=== PATIENT | female | born 1945 | race Caucasian/White ===

== ENCOUNTER 2019-07-13 09:43 | Outpatient (CLI) | payer MEDICARE, OTHER ==
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
== END 2019-07-13 09:44 | disposition home or self-care (01) ==
LOC: SCSRAD 09:43
PROVIDERS: ATTEND Family Medicine
DX: R07.81 Pleurodynia (principal); S22.41XA Multiple fractures of ribs, right side, initial encounter for closed fracture

== ENCOUNTER 2019-09-28 09:30 | Outpatient (CLI) | payer MEDICARE, OTHER ==
--- NOTE | 2019-09-28 11:49 | RAD ---
RIGHT RIBS GREATER THAN EQUAL TO 2 VIEW STANDARD: HISTORY: Right upper quadrant closed fractures of multiple ribs. COMPARISON: Upright rib radiograph from 07/13/2019. FINDINGS: There are healing rib fractures of the anterior 7th, 8th, 9th, and possibly even the 10th ribs. No u nderlying pneumothorax. There is callus formation. No significant effusion. IMPRESSION: Healing right 7th-10th rib fractures with some mild displacement and callus formation. POS: HOME
--- NOTE | 2019-09-28 11:56 | ULT ---
RIGHT UPPER QUADRANT ULTRASOUND: Date: 09/28/2019 HISTORY: Right upper quadrant abdominal pain. COMPARISON: 05/03/2014. FINDINGS: The pancreas is obscured by bowel gas. The liver demonstrates increased echogenicity suggesting diffuse fatty infiltrate. This does limit ev aluation of the hepatic parenchyma, but no obvious focal hepatic lesion is appreciated. There are mobile echogenic foci seen within the gallbladder lumen with posterior shadowing compatible with gallbladder calculi. There is gallbladder wall thickening measuring 0.4 cm. No pericholecystic fluid is identified. Grape Picker was unable to elicit a sonographic Powell's sign. Common duct is normal in caliber, measuring 0.4 cm. Visualized portions of the IVC and right kidney demonstrate a normal sonographic appearance. The righ t kidney measures 10.8 cm. IMPRESSION: Cholelithiasis with gallbladder wall thickening. No pericholecystic fluid or sonographic Powell's sig n elicited. However, gallbladder wall thickening in a patient with cholelithiasis can be seen with ch olecystitis. Hepatobiliary study may be helpful for further evaluation depending on clinical concern. 2. Common duct is normal in caliber. 3. Fatty infiltration of the liver. POS: LUANN
== END 2019-09-28 09:31 | disposition home or self-care (01) ==
LOC: SCSULT 09:30
PROVIDERS: ATTEND Family Medicine
DX: R10.11 Right upper quadrant pain (principal); S22.41XD Multiple fractures of ribs, right side, subsequent encounter for fracture with routine healing; K80.20 Calculus of gallbladder without cholecystitis without obstruction; K82.8 Other specified diseases of gallbladder; K76.0 Fatty (change of) liver, not elsewhere classified
CPT/HCPCS: 76705

== ENCOUNTER 2019-10-11 12:07 | Outpatient (CLI) | payer MEDICARE, OTHER ==
[2019-10-11 12:59] LABS: #Basophils 0.1 thou/uL (0.0-0.2); #Eosinphils 0.3 thou/uL (0.0-0.7); #Lymphocytes 2.4 thou/uL (1.20-3.40); #Monocytes 0.5 thou/uL (0.11-0.59); #Neutrophils 3.2 thou/uL (1.40-6.50); %Basophils 0.8 % (0.0-1.0); %Lymphocytes 36.6 % (21.0-51.0); %Monocytes 7.7 % (0.0-10.0); %Neutrophils 49.9 % (42.0-75.0); Hemoglobin 13.3 g/dL (12.0-16.0); Mean Corpuscular HGB CONC 33.9 g/dL (32.0-36.0); Mean Corpuscular Hemoglobin 33.8 pg (27.0-31.0); Mean Corpuscular Volume 99.7 fL (78.0-98.0); Mean Platelet Volume 10.4 fL (7.4-10.4); Platelet Count 195 thou/uL (130-400); RBC Distribution Width 11.6 % (11.5-14.5); Red Blood Cell (RBC) Count 3.92 mill/uL (4.20-5.40); White Blood Cell (WBC) Count 6.5 thou/uL (4.8-10.8)
[2019-10-11 13:12] LABS: ALT (SGPT) 363 U/L (8-55); AST (SGOT) 196 U/L (5-34); Albumin 4.2 g/dL (3.4-4.8); Alkaline Phosphatase 270 U/L (40-110); Anion Gap 11 mmol/L (10-20); BUN (Urea Nitrogen) 17 mg/dL (9.8-20.1); Bilirubin, Direct 0.2 mg/dL (0.1-0.3); Bilirubin, Total 0.5 mg/dL (0.2-1.2); Calc. Creatinine Clearance 0 mL/min (70-130); Calcium 10.1 mg/dL (7.8-10.44); Carbon Dioxide 30 mmol/L (23-31); Chloride 102 mmol/L (98-107); Estimated GFR-MDRD 71; Globulin 3.5 g/dL (2.4-3.5); Glucose 93 mg/dL (83-110); Potassium 4.6 mmol/L (3.5-5.1); Protein, Total 7.7 g/dL (6.0-8.3); Sodium 138 mmol/L (136-145)
== END 2019-10-11 12:08 | disposition home or self-care (01) ==
LOC: LABBT 12:07
PROVIDERS: ATTEND Surgery
DX: Z01.818 Encounter for other preprocedural examination (principal); K81.0 Acute cholecystitis
CPT/HCPCS: 80053; 80076; 85025; 93005; 93010

== ENCOUNTER → 2019-10-12 | Day surgery (SDC) | payer MEDICARE, OTHER ==
[2019-10-11 12:14] VITALS: BMI 34.3
[~2019-10-12] MED LIST: Bupivacaine 0.25% HCL 30 ML VIAL ONE; Dexamethasone 20 MG/5 ML VIAL ONE; Fentanyl 100 MCG/2 ML VIAL ONE; Glycopyrrolate 0.2 MG/ML 5 ML SYRINGE ONE; HYDROcodone/Acetaminophen 5/325 mg Tablet ONE; Iothalamate Meglumine 60% 50 ML VIAL FS ONE; Ketorolac Tromethamine 30 MG/ML VIAL ONE; Lidocaine 1% PF 5 ML VIAL ONE; Lidocaine 1% w/Epinephrine 1:100K 20 ML VIAL ONE; Ondansetron PF 4 MG/2 ML Vial ONE; PROPOFOL 200 MG/20 ML VIAL ONE; Rocuronium Bromide 10 MG/ML (10ML VIAL) ONE; Succinylcholine Chloride 20 MG/ML 10 ml SYRINGE FS ONE
--- NOTE | 2019-10-12 10:54 | RAD ---
EXAM: XR Cholangiogram in Surgery PROVIDED CLINICAL HISTORY: Cholelithiasis and gallbladder wall thickening in a patient with right upper quadrant abdominal pain. COMPARISON: None FINDINGS\IMPRESSION: Single intraoperative fluoroscopic images from an intraoperative cholangiogram is submitted for inter pretation. Provided image demonstrates surgical instruments overlying the right upper quadrant. The cystic duct is cannulated. There is opacification of the common duct and intrahepatic bile ducts. The common duct does appear mildly ectatic. There is a short segment of faint diminished contrast above the level of the cystic duct which is likely related to incomplete distention and opacification with contrast. No significant intrahepatic biliary duct dilatation is present. No definite filling defect is seen to correspond to a calculus on provided image. There is evidence of free spill of cont rast into the duodenum. Correlation with intraoperative findings is recommended. Fluoroscopy: Time-4 seconds Dose 0.53 mGy
--- NOTE | 2019-10-12 13:51 | OP ---
DATE OF PROCEDURE: 10/12/2019 PREOPERATIVE DIAGNOSIS: Acute on chronic cholecystitis. PROCEDURE PERFORMED: Laparoscopic cholecystectomy with intraoperative cholangiogram. INDICATIONS: A 73-year-old female with progressive right upper quadrant pain associated with nausea and vomiting. She had gone to the emergency room and was found to have gallstones and a thickened gallbladder wall. She had elevated liver functions. FINDINGS: Distended, inflamed gallbladder with thickened wall, several stones, negative IOC. DESCRIPTION OF PROCEDURE: After informed consent was obtained, patient was taken to the operating room, given general endotracheal anesthesia, placed in supine position. Abdomen was prepped and draped in usual fashion. Local anesthesia was infiltrated subcutaneously and deep. A subumbilical incision was performed. Subcu divided sharply. The fascia was grasped and 2 stay sutures of 0 Vicryl placed on either side of midline. Midline incised. Digital palpation revealed no local adhesions. A blunt 12 mm trocar inserted. Pneumoperitoneum was created to a pressure of 15 mmHg. A 0-degree laparoscope inserted under direct vision. Three 5 mm ports were placed subcostal. The gallbladder was distended and was able to be grasped and advanced superiorly. The peritoneum was dissected distally to expose the cystic duct and cystic artery in critical view. A clip was placed at the base of the gallbladder on the cystic duct. An incision made in the cystic duct and an Arrow cholangiocatheter inserted. Intraoperative cholangiogram was performed utilizing fluoroscopy showing free flow into the duodenum, no filling defects, normal intrahepatic ducts. The catheter removed. The duct was triply ligated and divided. The artery triply ligated and divided. The gallbladder removed from its fossa utilizing electrocautery. It was placed in an Endosac, removed from the abdomen through the umbilical port in the Endosac. Hemostasis was assured. Trocars and retractors removed. The fascia closed with interrupted 2-0 Vicryl suture. The skin closed with interrupted 4-0 Rapide. Dermabond applied. The patient tolerated the procedure well, transferred to Recovery in good condition. Sponge and needle count verified, correct x2. Job ID: [id number]
== END | disposition home or self-care (01) ==
LOC: SDC 07:16
PROVIDERS: ATTEND Surgery
PROC: 0FT44ZZ Resection of Gallbladder, Percutaneous Endoscopic Approach (ICD-10-PCS; principal; 2019-10-12)
PROC: BF13YZZ Fluoroscopy of Gallbladder and Bile Ducts using Other Contrast (ICD-10-PCS; 2019-10-12)
DX: K80.12 Calculus of gallbladder with acute and chronic cholecystitis without obstruction (principal); K21.9 Gastro-esophageal reflux disease without esophagitis; M41.9 Scoliosis, unspecified; H91.90 Unspecified hearing loss, unspecified ear; E78.00 Pure hypercholesterolemia, unspecified; M19.90 Unspecified osteoarthritis, unspecified site; F32.9 Major depressive disorder, single episode, unspecified; Z88.2 Allergy status to sulfonamides; Z88.5 Allergy status to narcotic agent; Z79.899 Other long term (current) drug therapy; Z98.890 Other specified postprocedural states
CPT/HCPCS: 47532; 88304; J0694; J1100; J1885; J2001; J2405; J2704; J3010; S0020

== ENCOUNTER 2019-10-16 16:37 | Emergency (ER) | payer MEDICARE, OTHER ==
[2019-10-16] MEDS ORDERED: Ondansetron PF 4 MG/2 ML Vial ONE (17:15)
[2019-10-16 17:37] LABS: #Lymphocytes 1.5 thou/uL (1.20-3.40); #Monocytes 1.2 thou/uL (0.11-0.59); #Neutrophils 11.9 thou/uL (1.40-6.50); %Basophils 0.1 % (0.0-1.0); %Eosinophils 0.2 % (0.0-10.0); %Lymphocytes 10.3 % (21.0-51.0); %Monocytes 8.1 % (0.0-10.0); %Neutrophils 81.3 % (42.0-75.0); ALT (SGPT) 163 U/L (8-55); AST (SGOT) 44 U/L (5-34); Albumin 4.2 g/dL (3.4-4.8); Alkaline Phosphatase 229 U/L (40-110); Anion Gap 18 mmol/L (10-20); BUN (Urea Nitrogen) 20 mg/dL (9.8-20.1); Bilirubin, Total 0.6 mg/dL (0.2-1.2); Calc. Creatinine Clearance 0 mL/min (70-130); Calcium 10.2 mg/dL (7.8-10.44); Carbon Dioxide 25 mmol/L (23-31); Chloride 97 mmol/L (98-107); Estimated GFR-MDRD 67; Globulin 3.9 g/dL (2.4-3.5); Glucose 142 mg/dL (83-110); Hemoglobin 14.9 g/dL (12.0-16.0); Mean Corpuscular HGB CONC 34.1 g/dL (32.0-36.0); Mean Corpuscular Hemoglobin 33.9 pg (27.0-31.0); Mean Corpuscular Volume 99.4 fL (78.0-98.0); Mean Platelet Volume 10.6 fL (7.4-10.4); Platelet Count 240 thou/uL (130-400); Potassium 3.4 mmol/L (3.5-5.1); Protein, Total 8.1 g/dL (6.0-8.3); RBC Distribution Width 11.5 % (11.5-14.5); Red Blood Cell (RBC) Count 4.41 mill/uL (4.20-5.40); Sodium 137 mmol/L (136-145); White Blood Cell (WBC) Count 14.7 thou/uL (4.8-10.8)
--- NOTE | 2019-10-16 18:44 | RAD ---
SUPINE ABDOMEN: History: Abdominal pain. Post cholecystectomy four days ago. FINDINGS: There is stool throughout the colon which may indicate constipation. Nonspecific gas filled distended loops of small bowel seen. IMPRESSION: Nonspecific bowel gas. No evidence of obstruction. Possible ileus and/or constipation. POS: AGW
[2019-10-16] MEDS ORDERED: Ketorolac Tromethamine 30 MG/ML VIAL ONE ×2 (19:08→19:11)
== END 2019-10-16 19:54 | disposition home or self-care (01) ==
LOC: ERS 16:37
DX: K91.89 Other postprocedural complications and disorders of digestive system (principal); K56.7 Ileus, unspecified; K59.00 Constipation, unspecified; I10 Essential (primary) hypertension; F32.9 Major depressive disorder, single episode, unspecified; Z79.899 Other long term (current) drug therapy
CPT/HCPCS: 36415; 74018; 80053; 85025; 96361; 96374; 96375; J1885; J2405

== ENCOUNTER 2019-10-19 13:29 | Emergency (ER) | payer MEDICARE, OTHER ==
[~2019-10-19 13:29] MED LIST changes: -Bupivacaine 0.25% HCL 30 ML VIAL ONE; -Dexamethasone 20 MG/5 ML VIAL ONE; -Fentanyl 100 MCG/2 ML VIAL ONE; -Glycopyrrolate 0.2 MG/ML 5 ML SYRINGE ONE; -HYDROcodone/Acetaminophen 5/325 mg Tablet ONE; +Iopamidol-370 76% 500 ML 1 ML ONE; -Iothalamate Meglumine 60% 50 ML VIAL FS ONE; -Ketorolac Tromethamine 30 MG/ML VIAL ONE; -Lidocaine 1% PF 5 ML VIAL ONE; -Lidocaine 1% w/Epinephrine 1:100K 20 ML VIAL ONE; -Ondansetron PF 4 MG/2 ML Vial ONE; -PROPOFOL 200 MG/20 ML VIAL ONE; -Rocuronium Bromide 10 MG/ML (10ML VIAL) ONE; -Succinylcholine Chloride 20 MG/ML 10 ml SYRINGE FS ONE
[2019-10-19] MEDS ORDERED: Morphine 4 MG/ML VIAL ONE ×2 (14:05→15:00)
[2019-10-19] MEDS ORDERED: Ondansetron PF 4 MG/2 ML Vial ONE (14:05)
[2019-10-19 14:40] LABS: #Basophils 0.1 thou/uL (0.0-0.2); #Eosinphils 0.9 thou/uL (0.0-0.7); #Lymphocytes 2.1 thou/uL (1.20-3.40); #Monocytes 1.1 thou/uL (0.11-0.59); #Neutrophils 6.6 thou/uL (1.40-6.50); %Basophils 0.6 % (0.0-1.0); %Eosinophils 8.2 % (0.0-10.0); %Lymphocytes 19.7 % (21.0-51.0); %Neutrophils 61.5 % (42.0-75.0); Hemoglobin 14.4 g/dL (12.0-16.0); Mean Corpuscular HGB CONC 31.4 g/dL (32.0-36.0); Mean Corpuscular Hemoglobin 31.5 pg (27.0-31.0); Mean Platelet Volume 10.7 fL (7.4-10.4); Platelet Count 307 thou/uL (130-400); Red Blood Cell (RBC) Count 4.58 mill/uL (4.20-5.40); White Blood Cell (WBC) Count 10.7 thou/uL (4.8-10.8)
[2019-10-19 15:05] LABS: ALT (SGPT) 71 U/L (8-55); AST (SGOT) 40 U/L (5-34); Albumin 3.8 g/dL (3.4-4.8); Alkaline Phosphatase 240 U/L (40-110); Anion Gap 18 mmol/L (10-20); BUN (Urea Nitrogen) 24 mg/dL (9.8-20.1); Bilirubin, Total 0.9 mg/dL (0.2-1.2); Calc. Creatinine Clearance 0 mL/min (70-130); Carbon Dioxide 26 mmol/L (23-31); Chloride 94 mmol/L (98-107); Estimated GFR-MDRD 69; Globulin 4.5 g/dL (2.4-3.5); Glucose 112 mg/dL (83-110); Potassium 4.5 mmol/L (3.5-5.1); Protein, Total 8.3 g/dL (6.0-8.3); Sodium 133 mmol/L (136-145)
--- NOTE | 2019-10-19 15:12 | CT ---
CT ABDOMENAND PELVIS WITH IV CONTRAST: Date: 10/19/2019 PROVIDED CLINICAL HISTORY: Abdominal pain, history of recent cholecystectomy. FINDINGS: No comparisons. The visualized lung bases are free of significant opacity. There is a small hiatal hernia. The liver, spleen, pancreas, kidneys, and adrenal glands demonstrate no significant abnormality. Simp le-appearing cysts are seen involving each kidney. There is minimal free fluid present within the right upper quadrant anterior to the right hepatic mar gin inferiorly, as well as a small amount of free fluid present within the pelvis, presumably postope rative in nature. There are scattered loops of mildly ectatic fluid-filled small bowel without eviden ce for bowel obstruction. The appendix is generous in caliber and fills with gas and demonstrates mul tiple appendicoliths. There is no inflammatory change about the appendix. Sigmoid colonic diverticulosis changes are seen without CT evidence for diverticulitis. The osseous structures demonstrate no concerning lytic or blastic lesions. Sacral stimulator device i s noted. IMPRESSION: 1. Minimal likely postoperative free intraperitoneal fluid. 2. Scattered mildly ectatic loops of fluid-filled small bowel, without evidence for obstruction. Thi s could reflect ileus. POS: MICHAEL
[2019-10-19 16:51] LABS: Bacteria/HPF None Seen HPF (None Seen); Bilirubin Negative (Negative); Blood, Urine Trace (Negative); Clarity Clear (Clear); Glucose, Urine (Dipstick) Normal (Negative); Leukocyte 250 Leu/uL (Negative); Nitrite Negative (Negative); Protein, Urine (Dipstick) Negative (Neg-Trace); RBC/HPF 0-3 HPF (0-3); Squamous Epithelial 0-3 HPF (0-3); Urobilinogen Normal mg/dL (Less than 2); WBC/HPF 21-50 HPF (0-3)
== END 2019-10-19 18:08 | disposition home or self-care (01) ==
LOC: ERS 13:29
DX: N39.0 Urinary tract infection, site not specified (principal); K82.9 Disease of gallbladder, unspecified; I10 Essential (primary) hypertension; F32.9 Major depressive disorder, single episode, unspecified; Z79.899 Other long term (current) drug therapy
CPT/HCPCS: 74177; 80053; 85025; 87086; 96361; 96374; 96375; 96376; 99284; J2270; J2405; 81003; 81015; Q9967

== ENCOUNTER 2021-10-04 10:23 | Outpatient (CLI) | payer MEDICARE, OTHER ==
[2021-10-04 13:37] LABS: ALT (SGPT) 24 U/L (8-55); AST (SGOT) 26 U/L (5-34); Alkaline Phosphatase 59 U/L (40-110); Anion Gap 14 mmol/L (10-20); BUN (Urea Nitrogen) 21 mg/dL (9.8-20.1); Bilirubin, Total 0.4 mg/dL (0.2-1.2); Calc. Creatinine Clearance 0 mL/min (70-130); Calcium 9.3 mg/dL (7.8-10.44); Carbon Dioxide 24 mmol/L (23-31); Chloride 106 mmol/L (98-107); Globulin 2.8 g/dL (2.4-3.5); Glucose 94 mg/dL (83-110); Potassium 4.2 mmol/L (3.5-5.1); Protein, Total 6.8 g/dL (5.8-8.1); Sodium 140 mmol/L (136-145)
[2021-10-04 13:40] LABS: #Basophils 0.1 10x3/uL (0.0-0.2); #Eosinphils 0.4 10x3/uL (0.0-0.5); #Monocytes 0.6 10x3/uL (0.0-1.1); #Neutrophils 2.9 10x3/uL (1.5-8.4); %Eosinophils 6.3 % (0.0-6.0); %Monocytes 10.3 % (0.0-10.0); %Neutrophils 48.2 % (40.0-75.0); Hemoglobin 12.9 g/dL (12.0-15.5); Mean Corpuscular Hemoglobin 33.7 pg (27.0-33.0); Mean Platelet Volume 12.1 fl (7.4-10.4); Platelet Count 256 10x3/uL (150-450); RBC Distribution Width 12.7 % (11.5-14.5); Red Blood Cell (RBC) Count 3.83 10x6/uL (3.90-5.03); White Blood Cell (WBC) Count 5.9 10x3/uL (3.5-10.5)
[2021-10-05 16:08] LABS: SARS-CoV-2 PCR by NAA Not Detected (NotDetected)
== END 2021-10-04 10:24 | disposition home or self-care (01) ==
LOC: LABBT 10:23
PROVIDERS: ATTEND Surgery
DX: Z01.818 Encounter for other preprocedural examination (principal); K42.9 Umbilical hernia without obstruction or gangrene; Z20.822 Contact with and (suspected) exposure to COVID-19
CPT/HCPCS: 80053; 85025; 93005; U0003; U0005; 93010

== ENCOUNTER 2022-01-16 12:02 | Outpatient (CLI) | payer MEDICARE, OTHER | END 2022-01-16 12:03 | disposition home or self-care (01) | LOC: BICRAD 12:02 | PROVIDERS: ATTEND Family Medicine | DX: M54.50 Low back pain, unspecified (principal); M25.552 Pain in left hip; M54.6 Pain in thoracic spine; M47.814 Spondylosis without myelopathy or radiculopathy, thoracic region; M47.816 Spondylosis without myelopathy or radiculopathy, lumbar region; M41.9 Scoliosis, unspecified | CPT/HCPCS: 72072; 72100 ==